=== PATIENT | female | born 1975 | race Caucasian/White ===

== ENCOUNTER 2022-04-12 10:24 | Inpatient (IN) | payer OTHER ==
[2022-04-12 10:36] VITALS: BMI 25.0
[2022-04-12 12:12] LABS: BASO % 0.4 % (0-2.0); HEMATOCRIT 39.6 % (32.4-45.2); HEMOGLOBIN 13.2 GM/dL (10.7-15.3); LYMPH % 11.8 % (8-40); MCH 30.6 pg (25.7-33.7); MCHC 33.4 g/dl (32.0-36.0); MEAN CELL VOLUME 91.7 fl (80-96); MEAN PLT VOLUME 7.3 fl (7.5-11.1); MONO % 4.8 % (3.8-10.2); PLATELET COUNT 278 10^3/uL (134-434); RBC 4.32 M/mm3 (3.60-5.2); RDW 12.6 % (11.6-15.6); WHITE BLOOD COUNT 10.9 K/mm3 (4.0-10.0)
[2022-04-12 12:23] LABS: ALBUMIN 3.6 g/dl (3.4-5.0); BLOOD UREA NITROGEN 12.5 mg/dL (7-18)
[2022-04-12 12:26] LABS: CREATININE 0.5 mg/dL (0.55-1.3)
[2022-04-12 12:28] LABS: BILIRUBIN,TOTAL 0.4 mg/dL (0.2-1); TOT PROT 7.3 g/dl (6.4-8.2)
[2022-04-12] MEDS ORDERED: MELATONIN 5 MG TABLETS PO ONE (22:55)
[2022-04-12] MEDS ORDERED: MELATONIN 5 MG TABLETS ONE (22:59)
[2022-04-13 11:02] VITALS: BP 116/78; PULSE 76; RESP 20; TEMP 97.9
[2022-04-14] MEDS ORDERED: ESCITALOPRAM OXALATE 10 MG TABLET PO SCH (10:00)
== END 2022-04-13 11:51 | disposition left against medical advice (07) | DRG 137 ==
LOC: JER 10:24 → JERBED 13:51 → OBSVTOIN 04-13 10:21
PROVIDERS: ADMIT Internal Medicine; ATTEND Internal Medicine
DX: U07.1 COVID-19 (principal); R55 Syncope and collapse
CPT/HCPCS: 0241U-QW; 36415; 71046-TC-FY; 80053; 84484; 84703; 85025; 85379; 86850; 86900; 86901; 93005; 93010; 99285-25; G0378